=== PATIENT | male | born 1990 | race Caucasian/White ===

== ENCOUNTER 2024-12-18 16:53 | Emergency (ER) | payer BC, SELFPAY ==
--- OUTSIDE RECORDS SUMMARY | 2015-03-23 04:48 | XMS_ITS | Continuity of Care Document ---
Author Organization [facility] Address [address] [address] [place] [address] Phone Care Team Providers Care Radio Board Operator Announcer Name Role Phone Link Juan F MORIN Unavailable Unavailable Advance Directives Directive Yes / No Effective Date File Name No Information Encounters Encounter Description Practice Location Reason(s) For Visit Diagnoses Date Provider Providers Copied on Encounter [facility], [address] [address], [place], [place], [id number], [place] tel:[phone] [facility] No Information 0 5 Link MD Rogel. [address] [facility], [facility] [address], [place], [place], [id number] , [place]. tel:[phone] Referring Provider: Referral Self, USE FOR SELF REFERRALS. Family History Family Member Type Diagnosis Age At Onset No Information Payers Payer name Insurance type Covered democrat ID Authoriza tion(s) No Information Social History Type Description Quantity Date Captured Comments Sex Male Smoking Status No Information Chief Complaint And Reason For Visit No Information Reason For Referral Reason For Referral No Information History Of Present Illness Encounter Date Complaint History Of Prese nt Illness No Information Functional Status Date Functional Assessmen t No Information Instructions Date Instruction Additional Infor mation No Information Assessments Type Assessment Date No Information Patient Care Teams Name Effective Dates (start - stop) Status Members No Information
--- OUTSIDE RECORDS SUMMARY | 2015-03-23 04:48 | XMS_ITS | Continuity of Care Document ---
Author Organization [facility] Address [address] [address] [place] [address] Phone Care Team Providers Care Contractor General Engineering Name Role Phone Link Juan F MORIN Unavailable Unavailable Advance Directives Directive Yes / No Effective Date File Name No Information Encounters Encounter Description Practice Location Reason(s) For Visit Diagnoses Date Provider Providers Copied on Encounter [facility], [address] [address], [place], [place], [id number], [place] tel:[phone] [facility] No Information 0 5 Link MD Rogel. [address] [facility], [facility] [address], [place], [place], [id number] , [place]. tel:[phone] Referring Provider: Referral Self, USE FOR SELF [...]
--- OUTSIDE RECORDS SUMMARY | 2024-12-18 16:56 | XMS_ITS | Clinical Summary ---
Author Organization [facility] Address [address] [place] [address] Care Team Providers Care Oracle Solutions Architect Name Role Phone Lor Sparks MD Primary Care Provider Allergies Active Allergy Reactions Criticality Noted Date Comments Pollen Extracts Runny Nose 12/31/2006 Medications amitriptyline 10 mg tabletIndicatio ns:Concussion without loss of consciousness, subsequent encounter Take 1 tab daily for 1 week, then increase to 2 tabs daily for 1 week, then increase to 3 tabs daily. 90 Tablet 05/21/2024 Active Active Problems No known active problems Immunizations Immunization Administration Dates Next Due DTaP 11/25/1997,1992,1992 ,1992 Hepatitis B (Peds) 11/28/2004,08/25/2004, 005 Inactivated Polio Vaccine 12/23/1997,11/25/1997, 1992,1992 MMR 06/04/2004,11/25/1997 Td (Age >=7 Years) 06/04/2004 Tdap 11/02/2020,04/21/2012 Family History Medical History Relation Name Comments No Known Problems Brother 1 Justice No Known Problems Brother 2 Adrian No Known Problems Father Diabetes Maternal Grandfather No Known Problems Mother Anesthesia Problem No Family History Blood Disease No Family History Clotting disorder No Family History Relation Name Status Comments Brother 1 Justice Alive Brother 2 Adrian Alive Father Alive Maternal Grandfather Alive Maternal Grandmother Alive Mother Alive Paternal Grandfather Alive Paternal Grandmother Alive Social History Tobacco Use Types Packs/Day Years Used Date Smoking Tobacco: Former Cigarettes 1 2 2 010 - 04/14/2011 Smokeless Tobacco: Never Tobacco Cessation:Counseling Given: Yes Alcohol Use Standard Drinks/Week Comments Yes 0 (1 standard drink = 0.6 oz pur e alcohol) occasional PHQ-2 Answer Date Recorded PHQ-2 TOTAL SCORE 0 06/30/2023 Social Connections Answer Date Recorded Do you often feel lonely or isolated from those around you? 0 06/30/2023 Financial Resource Strain Answer Date R ecorded Difficulty of Paying Living Expenses 3 06/30/2023 Difficulty of Paying Living Expenses Not on file 06/30/2023 Food Insecurity Answer Date Recorded Do you worry your food will run out before you are able to buy more? 1 06/30/2023 Transportation Needs Answer Date Record ed Does lack of transportation keep you from medica l appointments? 1 06/30/2023 Does lack of transportation keep you from work, meetings or getting things that you need? 1 06/30/2023 Housing Stability Answer Date Recorded What is your housing situation today? 1 06/30/2023 Utilities Answer Date Recorded Do you have trouble paying f or utilities (for example, heat, electricity, water, phone)? 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 file Not on file Not on file Obstetrics History Last Filed Vital Signs Vital Sign Reading Time Taken Comments Blood Pressure 132/74 05/21/2024 2:53 PM NUCLEAR REACTOR TECHNICIAN Pulse 85 05/21/2024 2:53 PM NUCLEAR REACTOR TECHNICIAN Temperature 36.8 C (98.3 F) 02/17/2024 3:32 PM NUCLEAR REACTOR TECHNICIAN Respiratory Rate 16 05/21/2024 2:53 PM NUCLEAR REACTOR TECHNICIAN Oxygen Saturation 97% 05/21/2024 2:53 PM NUCLEAR REACTOR TECHNICIAN Inhaled Oxygen Concentration - - Weight 114 kg (251 lb 6.4 oz) 05/21/2024 2:53 PM NUCLEAR REACTOR TECHNICIAN Height 190.5 cm (6' 3) 05/21/2024 2:53 PM NUCLEAR REACTOR TECHNICIAN Body Mass Index 31.42 05/21/2024 2:53 PM NUCLEAR REACTOR TECHNICIAN Plan of Treatment Health Maintenance Due Date Last Done Comments Depression screening for age 12+ 06/29/2024 06/30/2023, 09/06/2020 COVID-19 vaccine series ( season) 2024 Influenza Vaccine (#1) 2024 BMI (ht and wt on same day) for age 18+ 05/21/2025 05/21/2024, 04/29/2024, 06/30/2023, Additional history exists Tetanus booster 11/02/2030 11/02/2020, 11/2012, 06/04/2004 RSV vaccine for adults or (1 - 1-dose 75+ series) 2067 Hepatitis B series for 19+ Completed 11/28, 08/25/2004, 06/04/2004 HIV for age 15-65 Completed 06/30/2023 Hepatitis C screening for age 18-79 Completed 06/30/2023 Pneumococcal series for age 6-49 Aged Out No longer eligible based on patient's age to complete this topic Procedures Procedure Name Priority Date/Time Associated Diagnosis Comments ANTI HIV 1/2 Routine 06/30/2023 8:47 AM CDT Encounter for screening for HIV ANTI HCV Routine 06/30/2023 8:47 AM CDT Need for hepatitis C screening test from Last 3 Months or Most Recently Relevant to Health Maintenance Results * ANTI HCV (06/30/2023 8:47 AM CDT) HEPATITIS C ANTIBODY Non-Reacti ve Non-React altaf 06/30/2023 4:24 PM CDT [facility] Comment:Please note, per www .CDC.gov: If a patient is known to be at high risk of HCV infection, or is symptomatic, and the physician's suspicion of HCV infection is high, HCV RNA testing is often employed and is of diagnostic value, even after an initial negative anti-HCV test result. Blood BLOOD SPECIMEN / Unknown Venipuncture / Unknown 06/30/2023 8:47 AM CDT 06/30/2023 8:47 AM CDT us Lor Sparks MD SEND OUTS Final R esult [facility] [address] [place] [address], [place] * ANTI HIV 1/2 (06/30/2023 8:47 AM CDT) HIV-1/HIV-2 SCREEN Non-Reacti ve Non-Reacti ve 06/30/2023 4:25 PM CDT [facility] Comment:HIV-1 p24 and HIV-1/ HIV-2 Ab Not Detected. Blood BLOOD SPECIMEN / Unknown Venipuncture / Unknown 06/30/2023 8:47 AM CDT 06/30/2023 8:47 AM CDT us Lor Sparks MD SEND OUTS Final R esult Performing Organization Address City/[facility]/ZIP Co de Phone Number [facility] [address] [place] [address], [place] from Last 3 Months or Most Recently Relevant to Health Maintenance Insurance [employer] on file [employer] Care Teams Oracle Solutions Architect Relationship Specialty Start Date End Date Lor Sparks MD PCP - General Family Practice 06/30/23
--- OUTSIDE RECORDS SUMMARY | 2024-12-18 16:56 | XMS_ITS | Patient Health Record ---
Author Organization [facility] Address [address] [place] [address] Care Team Providers Care Music Intern Name Role Phone None, None Primary Care Provider LISANDRA Marks Unavailable [phone] Reason For Referral No Information Social History Tobacco Use: Social History Observation Description Date Details (start date - stop date) Never Smoker NA - NA Social History : Social Info Question Answer Notes How often do you consume alcohol? Answer: less th an 6 per week Tobacco Use: Social Info Question Answer Notes Tobacco use/smoking Are you a nonsmoker Problems Problem Type SNOMED Code ICD Code Onset Dates Problem Status W/U Status Risk Notes Problem Tonsillar hypertrophy (84823122) Tonsillar hypertrophy (J35.1) Active confirmed Problem Gastroesophageal reflux disease without esophagitis (676464916) Gastroesophageal reflux disease without esophagitis (K21.9) Active confirmed Problem Pain in throat (111798253) Throat pain in adult (R07.0) Active confirmed Plan Of Treatment No Information Insurance Providers Payer Name Payer Address Payer Phone Subscriber Number Group Number Insured Name Patient Relationship to Insured Coverage Start Date Coverage End Date [place] [employer] [address] [address] [place] [address] [id number] Carlito Lyon Self - patient is the insured
--- OUTSIDE RECORDS SUMMARY | 2024-12-18 16:57 | XMS_ITS | Patient Health Record ---
Author Organization [facility] Address [address] [place] [address] [address] [place] [address] Care Team Providers Care Level Vial Grinder Name Role Phone Zelalem Stock Primary Care Provider Fox Eduardo Unavailable Unavailable Perfecto German Unavailable [phone] Allergies No Known Allergies Reason For Referral No Information Social History Tobacco Use: Social History Observation Description Date Details (start date - stop date) Former Smoker NA - NA Tobacco Control (Standard) Question Answer Notes Tobacco use: Former smoker Additional Findings: Tobacco non-user Current no nsmoker AUDIT-C (Standard) Question Answer Notes Did you have a drink contain ing alcohol in the past year? Yes How often did you have a dri nk containing alcohol in the past year? Declined to specify (0 point) How many drinks did you have on a typical day when you were drinking in the past year? Declined to specify (0 point) How often did you have six o r more drinks on one occasion in the past year? Declined to specify (0 point) Points 0 Interpretation Negative Problems Problem Type SNOMED Code ICD Code Onset Dates Problem Status W/U Status Risk Notes Problem Chronic pain (09197922) Other chronic pain (G89.29) Active confirmed Problem Lumbar radiculopathy (004818892) Radiculopath y, lumbar region (M54.16) Active confirmed Vital Signs Blood pressure diastolic 90 mm Hg 07/22/2024 Height 6ft4in in 07/22/2024 Blood pressure systolic 150 mm Hg 07/22/2024 Weight 257 lbs 07/22/2024 BMI 31.28 kg/m2 07/22/2024 Procedures Procedure Date Ordered Date Performed Result Body Sit e Intervention: 07/22/2024 07/26/2024 sched 07/23 Encounters Encounter Location Date Provider Diagnosis [facility] [address] [place] [address] 07/22/2024 Zelalem Stock Other chronic pain G89.29 and Radiculopathy, lumbar region M54.16 [facility] [address] [place] [address] 07/23/2024 Zelalem Stock Radiculopathy, lumbar region M54.16 [facility] [address] [place] [address] [address] [place] [address] 06/29/2024 Perfecto German [facility] [address] [place] [address] [address] [place] [address] 07/20/2024 Zelalem Stock [facility] [address] [place] [address] [address] [place] [address] 07/26/2024 Zelalem Stock Assessments Encounter Date Diagnosis (ICD Code) Assessment Notes Treatment Notes Treatment Clinical Notes Section Notes 07/23/2024 Radiculopathy , lumbar region (ICD-10 - M54.16) 07/22/2024 Other chronic pain (ICD-10 - G89.29) Carlito presents to the clinic for an evaluation regarding his chronic neck and low back pain. I have reviewed his symptoms and current medications. Carlito completed cervical, thoracic, and lumbar MRIs on 06/09/2024. I have reviewed this imaging with him today using spinal models and diagrams. Based upon this imaging, my physical examination, and his clinical presentation, I have recommended that Carlito proceed with a left L4-5 TFE. I discussed this procedure with the patient, outlining the potential risks and benefits in detail and answering all questions to patient's satisfaction. Following this discussion, Carlito expressed interest in proceeding and I have placed an order for the aforementioned procedure accordingly. Regarding medications, I have checked the [facility] database and I did not find any inconsistencies. This treatment plan was reviewed with the patient, and he was agreeable. He will return for further evaluation as needed. I will continue to monitor his progress, adjusting his treatment plan as necessary. Plan: 1. Review cervical MRI 2. Review thoracic MRI 3. Review lumbar MRI 4. Order left L4-5 TFE - patient scheduled on 07/23 5. Follow-up as needed Discharge instructions reviewed verbally. The patient was instructed to return to the office as scheduled and call with any questions, problems or concerns. Thoracic MRI 06/09/2024Impre ssion:Unremarka ble MRI of the thoracic spine. Lumbar MRI 06/09/2024Impre ssion:1. Normal alignment. No fractures2. Lumbar spondylosis3. At L4-5, mild narrowing of the right neural foramen.4. No spinal canal or neural foramina narrowing at the remaining levels Cervical MRI 06/09/2024Impre ssion:1. Normal alignment. No fractures2. Normal cord signal.3. At C3-4, mild narrowing of the right neural foramina.4. At C6-7, posterior disc bulge. Mild narrowing of the spinal canal.5. No spinal canal or neural foraminal narrowing at the remaining levels 07/22/2024 Radiculopathy , lumbar region (ICD-10 - M54.16) 07/22/2024 Other I, German Grady, am serving as a scribe to document services personally performed by Zelalem Stock MD, based upon my observations and the provider's statements to me. All documentation has been reviewed by the aforementioned doctor prior to being entered into the official medical record. I, Zelalem Stock MD attest that the above named individual is acting in scribe capacity, has observed my performance of the services and has documented them in accordance with my direction. The documentation recorded by the scribe accurately reflects the service I personally performed and the decisions made by me. We would like to thank Fox Eduardo D.C for referring Carlito to us today. It has been a pleasure to participate in his care. Please feel free to contact me if you have any questions. Plan Of Treatment No Information Insurance Providers Payer Name Payer Address Payer Phone Subscriber Number Group Number Insured Name Patient Relationship to Insured Coverage Start Date Coverage End Date [place] [employer] [facility] [address] [place] [address] [id number] Carlito Lyon Self - patient is the insured [facility] Blue Plus PMAP [address] [address] [place] [address] [id number] Carlito Lyon Self - patient is the insured 5
--- OUTSIDE RECORDS SUMMARY | 2024-12-18 16:57 | XMS_ITS | Clinical Summary ---
Author Organization [facility] Address [address] [place] [address] Care Team Providers Care Software Quality Engineer Name Role Phone Alex Leigh MD Primary Care Provider [phone] Allergies No known active allergies Medications predniSONE (DELTASONE) 10 mg oral tablet Take 6 pills once daily in the morning with food for 5 days, then decrease by one pill every day until off 45 tablet 06/18/2024 Active Active Problems No known active problems Social History Tobacco Use Types Packs/Day Years Used Date Smoking Tobacco: Former Cigarettes 1 5 Smokeless Tobacco: Never Tobacco Cessation:Counseling Given: Not Answered Alcohol Use Standard Drinks/Week Comments Not Currently 0 (1 standard drink = 0.6 oz pur e alcohol) Sex and Gender Information Value Date Recorded Sex Assigned at Not on file Legal Sex Male 1:48 PM TECHNICAL SME Gender Identity Not on file Sexual Orientation Not on file Last Filed Vital Signs Vital Sign Reading Time Taken Comments Blood Pressure - - Pulse - - Temperature - - Respiratory Rate 14 06/18/2024 7:53 AM TECHNICAL SME Oxygen Saturation - - Inhaled Oxygen Concentration - - Weight 113.4 kg (250 lb) 06/18/2024 7:53 AM TECHNICAL SME Height 190.5 cm (6' 3) 06/18/2024 7:53 AM TECHNICAL SME Body Mass Index 31.25 06/18/2024 7:53 AM TECHNICAL SME Plan of Treatment Health Maintenance Due Date Last Done Comments Anxiety Screening (NATALIO-2) 1993 Depression Assessment (PHQ-2) 1993 HPV Vaccine (1 - 3-dose SCDM series) 2019 COVID-19 Vaccine (2023-2 5 season) 2024 Influenza Vaccine (#1) 2024 Adult Tetanus Booster 11/02/2030 11/02/2020 , 04/21/2012, 06/04/2004 RSV Vaccines (1 - 1-dose 75+ series) 2067 Hepatitis C Screening Completed 06/30/2023 Meningococcal B Vaccine Aged Out No l onger eligible based on patient's age to complete this topic Pneumococcal Vaccine Aged Out No long er eligible based on patient's age to complete this topic Insurance [employer] PMAP/[employer] Care Teams Software Quality Engineer Relationship Specialty [place] [address] [place] [address] PCP - General Family Medicine 05/25/24
[2024-12-18 17:13] VITALS: BP 155/79; PULSE 85; RESP 20; TEMP 36.9; O2SAT 97; BMI 29.9
--- NOTE | 2024-12-18 18:11 | ED.GENADULT ---
HPI - General Adult General Chief complaint: GI Bleed Stated complaint: abdominal/chest/ and stomach pain Time Seen by Provider: 12/18/24 18:03 History of Present Illness HPI narrative: Generalized abd pain, goes up to ribs on left side. Pressure ,like gas pain. Going on for three days. Also has been having bright red blood from rectum. 1 bloody stool today. Vomited two days ago, was stomach acid with streaks of blood. Has been drinking water through out the day. 34-year-old man presenting to the emergency department with abdominal pain. Pain is numerous areas of the broadly. Does seem to radiate up the ribs on the left side. Has been feeling little more short of breath maybe because he thinks it is making him brief funny. Was away on vacation spend some time in hot tub. Three days ago woke with a really gross feeling in his stomach. He did vomit a couple of times. No hematochezia noted. Has not been vomiting since. Has continued to have regular daily morning bowel movements. Has caused more pain up into his abdomen. Has had a couple episodes than where his wiped and had crystal blood on tissue. The last 1 was where he felt he had bowel movements but did not and noticed that it was only blood. Does admit a history of hemorrhoids. Admits he might be little dehydrated at this point. Feels a sense of pressure bloating in his belly. No fever. Significant other thought he looked a little pale apparently. Does not note any trauma to his abdomen. Related Data Home Medications ?Medication ?Instructions ?Recorded ?Confirmed cetirizine 10 mg tablet (24Hour 10 mg PO DAILY PRN 12/18/24 12/18/24 Allergy) Allergies Allergy/AdvReac Type Severity Reaction Status Date / Time No Known Drug Allergies Allergy Verified 12/18/24 17:19 Review of Systems Status of ROS: Reports: 6 or more systems reviewed and unremarkable except as noted in History and below [facility] Social History Smoking Status: Former smoker How often do you have a drink containing alcohol: 2-3 times a week AUDIT-C Alcohol total score: 3 Non-prescribed substance use: marijuana (any form) Exam Narrative: Exam Narrative: Appears tired. Does have some large tattoos. Cheeks look a little flushed. Oropharynx is moist without erythema. Neck is supple without lymphadenopathy. Lungs are clear. Heart in regular rate and rhythm without murmur rub or gallop. Abdomen with present bowel sounds is soft and diffusely uncomfortable to palpation. No peritoneal signs. Not able to reproduce discomfort to palpation about the chest wall. Maybe more discrete discomfort in the left hypogastric area. Const: Vital Signs, click to edit/add: Vital Signs - 24 hr 12/18/24 17:13 Temperature 98.5 F Pulse Rate [Pulse Oximeter] 85 Respiratory Rate 20 Blood Pressure [Ri t Upper Arm] 155/79 H Pulse Oximetry 97 Oxygen Delivery Me thod Room Air Documenting provider has reviewed patient's vital signs: yes Course Vital Signs Vital signs: Initial Vital Signs Temperature 98.5 F 12/18/24 17:13 Temperature Source Temporal Artery Scan 12/18/24 17:13 Pulse Rate 85 12/18/24 17:13 Pulse Rhythm Regular 12/18/24 17:13 Respiratory Rate 20 12/18/24 17:13 Blood Pressure 155/79 H 12/18/24 17:13 Blood Pressure Mean 104 12/18/24 17:13 Blood Pressure Position Sitting 12/18/24 17:13 Pulse Oximetry 97 12/18/24 17:13 Oxygen Delivery Method Room Air 12/18/24 17:13 Vital Signs Temperature 98.5 F 12/18/24 17:13 Pulse Rate 85 12/18/24 17:13 Respiratory Rate 20 12/18/24 17:13 Blood Pressure 155/79 H 12/18/24 17:13 Pulse Oximetry 97 12/18/24 17:13 Oxygen Delivery Method Room Air 12/18/24 17:13 Temperature 98.5 F 12/18/24 17:13 Pulse Rate 85 12/18/24 17:13 Respiratory Rate 20 12/18/24 17:13 Blood Pressure 155/79 H 12/18/24 17:13 Pulse Oximetry 97 12/18/24 17:13 Oxygen Delivery Method Room Air 12/18/24 17:13 Medications Administered Medications: Discontinued Medications Generic Name Dose Route Start Last Admin Trade Name Freq PRN Reason Stop Dose Admin Sodium Chloride 1,000 mls @ 1,000 mls/hr 12/18/24 18:29 12/18/24 19:50 0.9 % Sodium Chloride 1000 Ml IV 12/18/24 19:28 Infused .Q1H ONE Infusion Lactated Ringer's 1,000 mls @ 1,000 mls/hr 12/18/24 19:40 12/18/24 21:00 Lactated Ringers 1000 Ml IV 12/18/24 20:39 Infused .Q1H ONE Infusion Ketorolac Tromethamine 30 mg 12/18/24 18:29 12/18/24 18:53 Ketorolac 30 Mg/Ml Inj IVP 12/18/24 18:30 30 mg ONCE ONE Administration Lidocaine 1 patch 12/18/24 20:40 12/18/24 20:41 Lidocaine 5% Patch TRANSDERMA 12/18/24 20:41 1 patch ONCE ONE Administration Protocol Lidocaine 1 patch 12/18/24 20:40 12/18/24 20:42 Lidocaine 5% Patch TRANSDERMA 12/18/24 20:41 Not Given ONCE ONE Protocol Medical Decision Making MDM Narrative Medical decision making narrative: Does sound like rectal passage bleeding and I am not sure that it is related to this comfort that he is having. Certainly could be diverticulitis. Does not have peritoneal signs in the abdomen. Gastritis? Does not sound like there is a particularly good diet and lots of energy/stimulant drinks. Abdominal strain? Pancreatitis? No trauma but possible splenic issue or bleed. Not sure that explains generalized abdominal discomfort but possible. Reassuring is soft belly with diffuseness of mild discomfort. I did propose checking labs initiating fluid resuscitation/hydration. I did return to do an anoscopy exam. This does show some not particularly inflamed internal hemorrhoids. There is 1 though with a rather small but relatively fresh clot. This is possibly a source of some rectal bleeding. Labs are reassuring. Normal hemoglobin. No further bleeding. COVID and flu negative. Did receive L normal saline showing some improvement. Also had ketorolac. Urinalysis was concentrated with ketones. Was given another L of fluids; lactated Ringer's. On reexamination overall is improved. Does not look is flushed. Looks more comfortable. Abdomen is still soft. I am able to localize more tenderness actually I think to the left rib margin. No specific trauma is recalled. But perhaps this was related to abdominal tension or vomiting earlier? . Costochondritis on the heels of viral process otherwise? Did place a lidocaine patch prior to departure. With improvement and reassuring labs, we decided to defer imaging at this. See patient discharge plan for further discussion Focus on hydration... Maybe less Red Bull...or was it Monster? Consider taking famotidine 20 or 40 mg daily over the next 1-2 weeks. Return for inability to stay hydrated/repeated vomiting, increasing and localizing abdominal pain, increasing bleeding, associated fever. Can take ibuprofen, maybe with little food or acetaminophen for aches. If this lidocaine patch is helpful, can purchase more [id number]. Lab Data Lab results reviewed: Yes I reviewed the patient's lab results Labs: Lab Results 12/18/24 12/18/24 12/18/24 Range/Units 18:40 18:41 19:49 WBC 9.05 (4.50-11.00) K/uL RBC 4.63 (4.30-5.90) m/uL Hgb 14.8 (13.5-17.5) gm/dL Hct 42.2 (37.0-53.0) % MCV 91 (80-100) fL MCH 32 (26-34) pg MCHC 35 (32-36) gm/dL RDW Coeff of Isidro 12.5 (11.5-15.5) % Plt Count 232 (140-440) K/uL Neut % (Auto) 53.8 (42.0-72.0) % Lymph % (Auto) 37.0 (20-44) % [place]ague % (Auto) 6.4 (0.0-11.0) % Eos % (Auto) 2.4 (0.0-7.0) % Baso % (Auto) 0.2 (0.0-3.0) % Neut # (Auto) 4.86 (1.7-7.0) K/uL Lymph # (Auto) 3.35 H (0.90-2.90) K/uL Montague # (Auto) 0.60 (0.00-0.90) K/UL Eos # (Auto) 0.22 (0.00-0.50) K/uL Baso # (Auto) 0.02 (0.00-0.30) K/uL Abs Immat Gran (auto) 0.02 (0.00-0.30) K/uL Imm/Tot Granulo (auto) 0.2 % Sodium 138 (135-149) mmol/L Potassium 3.7 (3.6-5.1) mmol/L Chloride 105 (96-114) mmol/L Carbon Dioxide 26 (20-32) mmol/L Anion Gap 7 (7-15) mEq/L BUN 15 (5-24) mg/dL Creatinine 0.9 (0.5-1.5) mg/dL Estimated Creat Clear 144.67 Estimated GFR 116 ml/min Glucose 92 (60-115) mg/dL Lactate 0.9 (0.5-1.9) mmol/L Calcium 9.2 (8.4-10.6) mg/dL Total Bilirubin 1.3 (0.1-1.5) mg/dL Direct Bilirubin 0.1 (0.0-0.5) mg/dL AST 39 H (12-35) U/L ALT 42 (4-50) U/L Alkaline Phosphatase 51 (40-150) U/L C-Reactive Protein < 0.5 L (0.5-1.0) mg/dL Total Protein 7.2 (6.0-8.3) g/dL Albumin 4.5 (3.3-5.0) g/dL Lipase 70 (23-300) U/L Urine Color Dark yellow (Yellow) Urine Appearance Clear (Clear) Urine pH 5.5 (5.0-8.5) Ur Specific Eek >= 1.030 (1.000-1.030) Urine Protein Trace A (Negative) Urine Glucose (UA) Negative (Negative) Urine Ketones 2+ A (Negative) Urine Blood Negative (Negative) Urine Nitrite Negative (Negative) Urine Bilirubin 1+ A (Negative) Urine Urobilinogen 0.2 (0.2-1.0) Ur Leukocyte Esterase Negative (Negative) Urine RBC 0-2 (0-2) Urine WBC 0-2 (0-5) Ur Squamous Epith Cells None (None-Few) Urine Bacteria None (None) Urine Mucus Many A (None) SARS-CoV-2 (PCR) Negative SARS-CoV-2 (Negative) Influenza Type A (PCR) Negative PCR FLU A (Negative) Influenza Type B (PCR) Negative PCR FLU B (Negative) Discharge Plan Discharge Clinical Impression: Bright red rectal bleeding, Dehydration, Rib pain Patient Disposition: Home w/ Parent or Adult Condition: Improved Instructions: Dehydration (ED) Additional Instructions: Focus on hydration... Maybe less Red Bull...or was it Monster? Consider taking famotidine 20 or 40 mg daily over the next 1-2 weeks. Return for inability to stay hydrated/repeated vomiting, increasing and localizing abdominal pain, increasing bleeding, associated fever. Can take ibuprofen, maybe with little food or acetaminophen for aches. If this lidocaine patch is helpful, can purchase more [id number]. Prescriptions: No Action cetirizine [24Hour Allergy] 10 mg tablet 10 mg PO DAILY PRN Follow Up/Referrals: Provider,Not a Local [Primary Care Provider, Family Practice] Stand Alone Forms: [employer] Info Instructions
[2024-12-18 18:49] LABS: Lactate* 0.9 mmol/L (0.5-1.9)
[2024-12-18 18:54] LABS: Hematocrit 42.2 % (37.0-53.0); Hemoglobin* 14.8 gm/dL (13.5-17.5); Immature Granulocytes Abs Auto 0.02 K/uL (0.00-0.30); Immature Granulocytes Pct Auto 0.2 %; Lymphocytes Absolute Auto 3.35 K/uL (0.90-2.90); Mean Corpuscular HGB Conc 35 gm/dL (32-36); Mean Corpuscular Hemoglobin 32 pg (26-34); Mean Corpuscular Volume 91 fL (80-100); RDW Coefficient of Variation % 12.5 % (11.5-15.5); Red Blood Count 4.63 m/uL (4.30-5.90); Slide Review Reflex No; White Blood Count* 9.05 K/uL (4.50-11.00)
[2024-12-18 19:06] LABS: Albumin* 4.5 g/dL (3.3-5.0); Chloride* 105 mmol/L (96-114)
[2024-12-18 19:07] LABS: Potassium* 3.7 mmol/L (3.6-5.1); Sodium* 138 mmol/L (135-149)
[2024-12-18 19:09] LABS: Blood Urea Nitrogen* 15 mg/dL (5-24); Creatinine* 0.9 mg/dL (0.5-1.5); Est. Creatinine Clearance* 144.67; Estimated Glomerular Filt Rate 116 ml/min
[2024-12-18 19:10] LABS: Alanine Aminotransferase* 42 U/L (4-50); Alkaline Phosphatase* 51 U/L (40-150); Anion Gap 7 mEq/L (7-15); Aspartate Amino Transferase* 39 U/L (12-35); Bilirubin Direct* 0.1 mg/dL (0.0-0.5); Bilirubin Total* 1.3 mg/dL (0.1-1.5); Calcium* 9.2 mg/dL (8.4-10.6); Carbon Dioxide* 26 mmol/L (20-32); Glucose* 92 mg/dL (60-115); Total Protein* 7.2 g/dL (6.0-8.3)
[2024-12-18 19:27] LABS: PCR FLU A Negative PCR FLU A (Negative); PCR FLU B Negative PCR FLU B (Negative); SARS PCR* Negative SARS-CoV-2 (Negative)
[2024-12-18 19:57] LABS: Appearance Urine Clear (Clear)
[2024-12-18] MEDS: LACTATED RINGERS 1000 ML 1,000 ML IV (20:04)
[2024-12-18] MEDS: LIDOCAINE 5% PATCH 1 PATCH TRANSDERMA (20:41)
== END 2024-12-18 21:05 | disposition home or self-care (01) ==
PROVIDERS: Emergency Provider Family Medicine
DX: K62.5 Hemorrhage of anus and rectum (principal); R07.81 Pleurodynia; E86.0 Dehydration
CPT/HCPCS: 36415; 80048; 80076; 81001; 83605; 83690; 85025; 86140; 87631; 96361; 96374; 99284; A9270; J1885; J7030; J7120